=== PATIENT | female | born 1985 | race African-American/Black ===

== ENCOUNTER → 2016-11-30 | Outpatient (CLI) | payer BC ==
[2016-10-30 10:40] VITALS: BP 112/70
[2016-11-30 10:26] LABS: TOTAL PROTEIN,URINE 10.1 mg/dl (0-11.9)
== END ==
LOC: LAB 09:51
PROVIDERS: ATTEND Specialist
DX: R03.0 Elevated blood-pressure reading, without diagnosis of hypertension (principal); Z34.80 Encounter for supervision of other normal pregnancy, unspecified trimester
CPT/HCPCS: 81050; 84157

== ENCOUNTER → 2016-12-05 | Outpatient (CLI) | payer BC ==
[2016-10-30 10:40] VITALS: BP 112/70
[2016-12-05 16:27] LABS: BILIRUBIN,URINE NEGATIVE (NEGATIVE); BLOOD/HEMOGLOBIN,URINE NEGATIVE (NEGATIVE); GLUCOSE, URINE NEGATIVE (NEGATIVE); KETONES,URINE NEGATIVE (NEGATIVE); LEUKOCYTE ESTERASE ,URINE 2+ (NEGATIVE); NITRITES,URINE NEGATIVE (NEGATIVE); PH,URINE 6.5 (5.0 - 8.0); PROTEIN,URINE NEGATIVE (NEGATIVE); UROBILINOGEN,URINE NORMAL (NORMAL)
[2016-12-05 16:29] LABS: BASOPHILS # (AUTO) 0.1 X10^3/uL (0.0-0.1); BASOPHILS % (AUTO) 0.7 % (0.2-1.0); EOSINOPHILS % (AUTO) 0.3 % (0.9-2.9); HEMATOCRIT 29.7 % (36.0-47.0); HEMOGLOBIN 9.3 g/dL (12.0-16.0); LYMPHOCYTES # (AUTO) 1.3 X10^3/uL (1.3-2.9); LYMPHOCYTES % (AUTO) 17.6 % (21.0-51.0); MEAN CORPUSCULAR HEMOGLOBIN 22.7 pg (27.0-34.0); MEAN CORPUSCULAR HGB CONC 31.5 g/dL (33.0-35.0); MEAN PLATELET VOLUME 8.7 fL (7.4-11.0); MONOCYTES # (AUTO) 0.7 x10^3/uL (0.3-0.8); MONOCYTES % (AUTO) 9.5 % (0.0-13.0); NEUTROPHILS # (AUTO) 5.3 x10^3/uL (2.2-4.8); NEUTROPHILS % (AUTO) 71.9 % (42.0-75.0); PLATELET COUNT 273 X10^3/uL (150.0-450.0); RED BLOOD COUNT 4.12 X10^6/uL (3.5-5.4); RED CELL DISTRIBUTION WIDTH 16.2 % (11.6-16.5); WHITE BLOOD COUNT 7.3 X10^3/uL (3.6-10.0)
[2016-12-05 16:35] LABS: APPEARANCE,URINE CLEAR (CLEAR); BACTERIA,URINE 1+ /HPF (NEGATIVE); COLOR,URINE YELLOW (YELLOW); RBC,URINE NONE SEEN /HPF (NEGATIVE); SQUAMOUS EPITHELIAL CELL,UR MODERATE /HPF (NEGATIVE)
[2016-12-05 16:36] LABS: AMORPHOUS SEDIMENT,UR TRACE /HPF (NEGATIVE)
[2016-12-05 16:46] LABS: HYPOCHROMASIA 1+; MICROCYTOSIS 1+; PLATELET MORPHOLOGY COMMENT NORMAL (NORMAL); POIKILOCYTOSIS 1+
[2016-12-05 16:47] LABS: ANISOCYTOSIS 1+
[2016-12-05 18:05] LABS: BLOOD UREA NITROGEN 6 mg/dL (7-18); CALCIUM 8.7 mg/dL (8.5-10.1); CARBON DIOXIDE 23.7 mmol/L (21-32); CHLORIDE 104 mmol/L (98-107); CREATININE 0.72 mg/dL (0.55-1.02); GLUCOSE 92 mg/dL (65-99); SODIUM 137 mmol/L (136-145); eGFR BLACK RACES > 60 (>60); eGFR NON BLACK RACES > 60 (>60)
== END ==
LOC: LAB 15:40
PROVIDERS: ATTEND Specialist
DX: Z01.818 Encounter for other preprocedural examination (principal); Z34.83 Encounter for supervision of other normal pregnancy, third trimester
CPT/HCPCS: 36415; 80048; 81001; 85025; 86592; 86850; 86900; 86901

== ENCOUNTER 2016-12-11 06:11 | Inpatient (IN) | payer BC ==
[2016-12-11] MEDS ORDERED: PHENERGAN INJ 25 MG IV PRN ×2 (06:28→20:07)
[2016-12-11] MEDS ORDERED: PITOCIN IVP ONE (06:28)
[2016-12-11] MEDS ORDERED: NUBAIN INJ 200 MG VIAL MULTIDOSE IVP PRN (06:28)
[2016-12-11] MEDS ORDERED: REGLAN INJ 10 MG VIAL IVP PRN ×3 (06:28→20:07)
[2016-12-11] MEDS ORDERED: MORPHINE SULFATE INJ 2 MG IVP PRN (06:28)
[2016-12-11] MEDS ORDERED: PITOCIN 10 UNITS in D5 LR 1000 ML 1,000 ML IV PRN (06:28)
[2016-12-11] MEDS ORDERED: D5 1/2 NS 1000 ML 1,000 ML IV ONE (06:38)
[2016-12-11] MEDS ORDERED: D5LR 1000ML W PITOCIN 10 U/L 1,000 ML IV ONE (06:38)
[2016-12-11] MEDS: D5 1/2 NS 1000 ML 1,000 ML IV SCH ×2 (06:45→17:34)
--- NOTE | 2016-12-11 07:06 | DR.OB ---
OB Quick Note - Assessment/Plan Assessment/Plan: L&D 12/11/16 at 6:50am S-No complaint. O-Afebrile,VSS [id number] with good LTV, +accel, no decel. CTX=none CVX=1cm/50%/-1/VTX AROM with clear fluid. IUPC and FSE placed. A-IUP at 38 4/7 weeks for induction PIH GERD anemia P-Begin pitocin induction F/U preeclamptic labs Anticipate
[2016-12-11 07:07] LABS: URIC ACID 4.3 mg/dL (2.6-6.0)
[2016-12-11] MEDS ORDERED: PITOCIN ONE ×2 (07:09→13:07)
[2016-12-11] MEDS ORDERED: D5 1/2 NS 1000ML W PITOCIN 20 U/L 1,000 ML IV ONE (07:09)
[2016-12-11] MEDS ORDERED: FENTANYL INJ 100 mcg EPI ONE (11:39)
[2016-12-11] MEDS ORDERED: LR 1000 ML IV 1,000 ML IV ONE ×2 (11:39→17:15)
[2016-12-11] MEDS ORDERED: NAROPIN EPIDURAL 0.2% + FENTANYL 90MCG 60 ML EPI ONE (11:47)
--- NOTE | 2016-12-11 11:51 | DR.OB ---
OB Quick Note - Assessment/Plan Assessment/Plan: L&D 12/11/16 at 11:40am Pitocin=18mu/min. S-No complaint except pain with CTX. O-Afebrile,VSS BTV=[id number] with good LTV, +accel, no decel. CTX=q 1 1/2 min., about 45-60mmHg CVX=2-3cm/50%/-1 A-IUP at 38 4/7 weeks for induction PIH GERD Anemia P-Cont. pitocin induction Anticipate
[2016-12-11] MEDS ORDERED: NAROPIN EPIDURAL 0.2% 60 ML with FENTANYL INJ 100 mcg 90 MCG IVP SCH ×2 (12:00)
[2016-12-11] MEDS ORDERED: VERSED ONE (13:07)
[2016-12-11] MEDS ORDERED: NS 50 ML IV + SPIKE MINIBAG* 50 ML IV ONE (16:10)
--- NOTE | 2016-12-11 16:42 | DR.OB ---
OB Quick Note - Assessment/Plan Assessment/Plan: L&D 12/11/16 at 4:35pm Pitocin=16mu/min. S-No complaint. s/p epidural. O-Afebrile,VSS [id number] with good LTV, +accel, no decel. CTX=q 1 1/2 min., about 50-60mmHg CVX=3cm/75%/-1/caput (no change since lunch) A-IUP at 38 4/7 weeks with failure to dilate PIH GERD Anemia P-To C/S
[2016-12-11] MEDS ORDERED: XYLOCAINE 2% and EPINEPHRINE 1:100,000 ONE (16:55)
[2016-12-11] MEDS: ANCEF VIAL 1 GM ONE ×2 (16:55→17:35)
[2016-12-11] MEDS ORDERED: DURAMORPH ONE (16:58)
[2016-12-11] MEDS ORDERED: BENADRYL INJ 50 MG VIAL IVP PRN ×2 (18:13→20:07)
[2016-12-11] MEDS ORDERED: ZOFRAN INJ 4 MG VIAL IVP PRN ×2 (18:13→20:07)
[2016-12-11] MEDS ORDERED: PHENERGAN INJ 25 MG IVP PRN (18:13)
[2016-12-11] MEDS ORDERED: D5 1/2 NS 1000 ML 1,000 ML with PITOCIN 20 UNITS IV SCH ×2 (20:07)
[2016-12-11] MEDS ORDERED: MYLICON TAB 80 MG CHEW PO PRN (20:07)
[2016-12-11] MEDS ORDERED: PERCOCET TAB 5/325 MG PO PRN (20:07)
[2016-12-11] MEDS ORDERED: NARCAN INJ IVP PRN (20:07)
[2016-12-11] MEDS ORDERED: TORADOL 30 MG VIAL IVP PRN (20:07)
[2016-12-11] MEDS ORDERED: ADACEL TDaP IM ONE (20:07)
[2016-12-11] MEDS: ZANTAC PO SCH (22:01)
[2016-12-12 05:14] LABS: HEMATOCRIT 23.9 % (36.0-47.0); HEMOGLOBIN 7.5 g/dL (12.0-16.0)
[2016-12-12] MEDS ORDERED: PERCOCET TAB 5/325 MG PO PRN (07:32)
[2016-12-12] MEDS: PRENATAL PLUS PO SCH (09:43)
[2016-12-12] MEDS: ZANTAC PO SCH ×2 (09:43→21:28)
[2016-12-12] MEDS: COLACE CAP 100 MG PO SCH ×2 (09:44→21:28)
[2016-12-12] MEDS: MOTRIN TAB 800 MG PO PRN (15:11)
[2016-12-12] MEDS: BACTROBAN OINT TOP SCH ×2 (15:15→21:29)
[2016-12-12] MEDS ORDERED: BENADRYL CAP/TAB 25 MG PO PRN (15:48)
[2016-12-12] MEDS: FERROUS SULFATE PO SCH (19:03)
[2016-12-13] MEDS: BACTROBAN OINT TOP SCH (06:31)
[2016-12-13] MEDS: PRENATAL PLUS PO SCH (09:10)
[2016-12-13] MEDS: ZANTAC PO SCH (09:10)
[2016-12-13] MEDS: COLACE CAP 100 MG PO SCH (09:10)
[2016-12-13] MEDS: FERROUS SULFATE PO SCH (09:10)
[2016-12-13] MEDS: MOTRIN TAB 800 MG PO PRN (10:53)
[2016-12-13 12:39] VITALS: BP 126/80
== END 2016-12-13 13:08 | disposition home or self-care (01) | DRG 766 ==
LOC: LD 06:11 → MED/SURG 18:28
PROVIDERS: ADMIT Specialist; ATTEND Specialist
PROC: 10907ZC Drainage of Amniotic Fluid, Therapeutic from Products of Conception, Via Natural or Artificial Opening (ICD-10-PCS; 2016-12-11)
PROC: 3E033VJ Introduction of Other Hormone into Peripheral Vein, Percutaneous Approach (ICD-10-PCS; 2016-12-11)
PROC: 3E0234Z Introduction of Serum, Toxoid and Vaccine into Muscle, Percutaneous Approach (ICD-10-PCS; 2016-12-11)
PROC: 10D00Z1 Extraction of Products of Conception, Low, Open Approach (ICD-10-PCS; principal; 2016-12-11 16:00)
DX: O13.3 Gestational [pregnancy-induced] hypertension without significant proteinuria, third trimester (principal); Z37.0 Single live birth; O99.02 Anemia complicating childbirth; D50.8 Other iron deficiency anemias; O62.0 Primary inadequate contractions; Z3A.38 38 weeks gestation of pregnancy; Z23 Encounter for immunization
CPT/HCPCS: 12052; 36415; 83615; 84450; 84460; 84550; 85014; 85018; 85384; 85610; 85730; 86850; 86900; 86901; 87040; 94760; A4222; S0197; J0690; J1885; J2001; J2250; J2550; J2590; J3010; J7042; J7120